=== PATIENT | male | born 1965 | race American Indian/Alaskan Native ===

== ENCOUNTER 2017-11-14 09:27 | Inpatient (IN) | payer OTHER ==
[2017-11-14] MEDS ORDERED: ASPIRIN PO ONE (09:30)
[2017-11-14 09:38] LABS: Basophils # (Auto) 0.1 K/mm3 (0.0-0.1); Basophils % (Auto) 0.5 % (0.0-1.8); Eosinophils % (Auto) 0.4 % (0.0-4.3); Hematocrit 37.7 % (35.5-45.6); Hemoglobin 12.7 gm/dl (11.8-15.2); Lymphocytes # (Auto) 1.2 K/mm3 (1.2-5.4); Lymphocytes % (Auto) 10.7 % (13.4-35.0); Mean Corpuscular HGB Conc 34 % (32-34); Mean Corpuscular Hemoglobin 32 pg (28-32); Mean Corpuscular Volume 95 fl (84-94); Monocytes # (Auto) 0.7 K/mm3 (0.0-0.8); Monocytes % (Auto) 6.7 % (0.0-7.3); Platelet Count 322 K/mm3 (140-440); Red Blood Count 3.99 M/mm3 (3.65-5.03); Red Cell Distribution Width 15.3 % (13.2-15.2)
[2017-11-14] MEDS ORDERED: NACL 0.9% 250ML 250 ML ONE (09:45)
[2017-11-14 09:50] LABS: INR 1.11 (0.87-1.13)
[2017-11-14 09:51] LABS: BUN/Creatinine Ratio 23; Blood Urea Nitrogen 25 mg/dL (9-20); Calcium 9.3 mg/dL (8.4-10.2); Hemolysis Index 2
[2017-11-14] MEDS ORDERED: NACL 0.9% 250ML 250 ML IV ONE (09:52)
[2017-11-14] MEDS ORDERED: K-DUR PO ONE (10:00)
--- NOTE | 2017-11-14 10:05 | XRay Report ---
AP CHEST: HISTORY: chest pain AP view of the chest demonstrates a normal mediastinal and cardiac contour with clear lungs and normal bony and soft tissue structures. IMPRESSION: Unremarkable AP chest.
[2017-11-14 10:07] LABS: Chol/HDL Ratio 2.14 %; HDL Cholesterol 48 mg/dL (40-59); LDL Cholesterol,Direct 49 mg/dL (50-130)
[2017-11-14 10:19] LABS: Alanine Aminotransferase 19 units/L (7-56); Albumin 3.9 g/dL (3.9-5)
[2017-11-14 10:20] LABS: Bilirubin,Direct < 0.2 mg/dL (0-0.2)
[2017-11-14 10:40] LABS: Partial Thromboplastin Time > 240.0 Sec. (24.2-36.6)
[2017-11-14] MEDS ORDERED: HEPARIN/ 0.45% NACL-25,000 UNIT/500 ML 25,000 UNIT/500 ML BAG IV SCH (11:30)
[2017-11-14] MEDS ORDERED: SODIUM CHLORIDE FLUSH SYRINGE 10 ML IV PRN (12:20)
[2017-11-14] MEDS ORDERED: BABY ASPIRIN PO STA (12:20)
[2017-11-14] MEDS ORDERED: ALUM-MAG HYDROX-SIMETH 200-200-20MG/5ML PO PRN (12:20)
[2017-11-14] MEDS ORDERED: NITROSTAT SL PRN (12:20)
[2017-11-14] MEDS ORDERED: DULCOLAX PR PRN (12:20)
[2017-11-14] MEDS ORDERED: MILK OF MAGNESIA PO PRN (12:20)
--- NOTE | 2017-11-14 12:43 | Emergency Department Report ---
ED Chest Pain HPI - General Chief Complaint: Chest Pain Stated Complaint: STEMI Time Seen by Provider: 11/14/17 09:35 Source: patient Mode of arrival: Stretcher Limitations: No Limitations - History of Present Illness Initial Comments: Patient states that he had the onset of substernal nonradiating chest tightness at about 9:00 last night. He states that he went to the [facility] facility but the wait was too long and he did not stay for evaluation. He went to his [facility] today for evaluation of chest pain. They kept him for a workup. They tell me that at 8:00 a troponin was obtained. This was later reported to me to be 7.5. The patient had been prior transported to this facility via EMS for admission for cardiology care. I did later speak to the patient's emergency physician at [place]. Upon the patient's arrival he did not complain of any substantial pain. He did not complain of any nausea or breathing difficulty. He stated previously he did have some dyspnea with the pain. He had intermittent pain all night. He states the pain was reasonably similar to the pain he had before his cardiac catheterization 3 years ago. The patient had his EKG transmitted to us via EMS telemetry. I was concerned that this patient had an evolving myocardial infarction. His previous EKG did not show the significant repolarization abnormalities that are present in his anterior leads. He has slight J-point elevation in his high lateral leads. 3 EKGs have been transmitted to our conservation worker on-call Dr. Martínez. He states that these are not consistent with STEMI. He did agree that the patient may have suffered an ischemic event. The conservation worker determined that the patient would not be sent directly to the wharf labou[facility]. Complaint: chest pain -: Gradual, days(s) Onset: during rest Pain Location: substernal Pain Radiation: none Severity: mild Quality: tightness Consistency: intermittent Improves With: nothing Treatments Prior to Arrival: other (now minimal heparin at the [facility]) - Related Data Home Medications Medication Instructions Recorded Confirmed Last Taken Atorvastatin Calcium [Lipitor] 20 mg PO QDAY 11/14/17 11/14/17 Unknown Carvedilol [Coreg] 25 mg PO BIDWM 11/14/17 11/14/17 Unknown Chlorthalidone [Thalitone] 25 mg PO QDAY 11/14/17 11/14/17 Unknown Clopidogrel Bisulfate [Plavix] 75 mg PO QDAY 11/14/17 11/14/17 Unknown ISOSORBIDE MONOnitrate [Imdur ER] 60 mg PO QDAY 11/14/17 11/14/17 Unknown Losartan/Hydrochlorothiazide 1 each PO QDAY 11/14/17 11/14/17 Unknown [Losartan-Hctz 100-25 mg Tab] OLANzapine [ZyPREXA] 2.5 mg PO QPM 11/14/17 11/14/17 Unknown Verapamil ER [Calan Sr] 240 mg PO QDAY 11/14/17 11/14/17 Unknown hydrALAZINE [Apresoline TAB] 100 mg PO TID 11/14/17 11/14/17 Unknown Allergies Allergy/AdvReac Type Severity Reaction Status Date / Time No Known Allergies Allergy Verified 11/14/17 09:29 Heart Score - HEART Score History: Highly suspicious EKG: Significant ST-depression Age: 45-65 Risk factors: > 3 risk factors or hx of atherosclerotic disease Troponin: 1-3x normal limit HEART Score: 8 ED Review of Systems ROS: Stated complaint: STEMI Other details as noted in HPI Constitutional: denies: chills, fever Eyes: denies: eye pain, eye discharge, vision change ENT: denies: ear pain, throat pain Respiratory: shortness of breath. denies: cough, wheezing Cardiovascular: chest pain. denies: palpitations Endocrine: no symptoms reported Gastrointestinal: denies: abdominal pain, nausea, diarrhea Genitourinary: denies: urgency, dysuria Musculoskeletal: denies: back pain, joint swelling, arthralgia Skin: denies: rash, lesions Neurological: denies: headache, weakness, paresthesias Psychiatric: denies: anxiety, depression Hematological/Lymphatic: denies: easy bleeding, easy bruising ED Past Medical Hx - Past Medical History Previous Medical History?: Yes Hx Hypertension: Yes Additional medical history: high cholesterol - Surgical History Past Surgical History?: Yes Hx Coronary Stent: Yes Hx Appendectomy: Yes - Social History Smoking Status: Never Smoker Substance Use Type: None - Medications Home Medications: Home Medications Medication Instructions Recorded Confirmed Last Taken Type Atorvastatin Calcium [Lipitor] 20 mg PO QDAY 11/14/17 11/14/17 Unknown History Carvedilol [Coreg] 25 mg PO BIDWM 11/14/17 11/14/17 Unknown History Chlorthalidone [Thalitone] 25 mg PO QDAY 11/14/17 11/14/17 Unknown History Clopidogrel Bisulfate [Plavix] 75 mg PO QDAY 11/14/17 11/14/17 Unknown History ISOSORBIDE MONOnitrate [Imdur ER] 60 mg PO QDAY 11/14/17 11/14/17 Unknown History Losartan/Hydrochlorothiazide 1 each PO QDAY 11/14/17 11/14/17 Unknown History [Losartan-Hctz 100-25 mg Tab] OLANzapine [ZyPREXA] 2.5 mg PO QPM 11/14/17 11/14/17 Unknown History Verapamil ER [Calan Sr] 240 mg PO QDAY 11/14/17 11/14/17 Unknown History hydrALAZINE [Apresoline TAB] 100 mg PO TID 11/14/17 11/14/17 Unknown History ED Physical Exam - General Limitations: No Limitations General appearance: alert, in no apparent distress - Head Head exam: Present: atraumatic, normocephalic - Eye Eye exam: Present: normal appearance, PERRL, EOMI. Absent: scleral icterus - ENT ENT exam: Present: mucous membranes moist - Neck Neck exam: Present: normal inspection - Respiratory Respiratory exam: Present: normal lung sounds bilaterally. Absent: respiratory distress - Cardiovascular Cardiovascular Exam: Present: regular rate, normal rhythm. Absent: systolic murmur, diastolic murmur, rubs, gallop - GI/Abdominal GI/Abdominal exam: Present: soft, normal bowel sounds. Absent: distended, tenderness, guarding, rebound - Rectal Rectal exam: Present: deferred - Extremities Exam Extremities exam: Present: normal inspection - Back Exam Back exam: Present: normal inspection - Neurological Exam Neurological exam: Present: alert, oriented X3, CN II-XII intact. Absent: motor sensory deficit - Psychiatric Psychiatric exam: Present: normal affect, normal mood - Skin Skin exam: Present: warm, dry, intact, normal color. Absent: rash ED Course Vital Signs 11/14/17 11/14/17 11/14/17 09:29 09:38 09:41 Temperature 97.7 F Pulse Rate 56 L 52 L Respiratory 17 10 L 17 Rate Blood Pressure 101/63 O2 Sat by Pulse 98 98 98 Oximetry 11/14/17 11/14/17 11/14/17 09:45 10:00 10:15 Temperature Pulse Rate 54 L 50 L 53 L Respiratory 13 10 L 17 Rate Blood Pressure 98/65 102/62 104/66 O2 Sat by Pulse 98 95 97 Oximetry 11/14/17 11/14/17 11/14/17 10:30 10:45 11:00 Temperature Pulse Rate 52 L 54 L 54 L Respiratory 12 12 12 Rate Blood Pressure 101/61 103/59 99/66 O2 Sat by Pulse 96 96 95 Oximetry 11/14/17 11/14/17 11/14/17 11:15 11:30 11:31 Temperature Pulse Rate 54 L 53 L 53 L Respiratory 13 12 Rate Blood Pressure 108/70 106/64 O2 Sat by Pulse 97 93 Oximetry 11/14/17 11/14/17 11:45 12:00 Temperature Pulse Rate 53 L 52 L Respiratory 15 10 L Rate Blood Pressure 107/68 107/68 O2 Sat by Pulse 96 97 Oximetry - Reevaluation(s) Reevaluation #1: Patient's initial blood pressure was 95 systolic. He was given a bolus of 250 mL of normal saline. Cardiology consultation was requested. The patient was ultimately admitted by the hospitalist Dr. Cain to the intensive care unit. 11/14/17 12:44 EULA score - Eula Score Age > 65: (0) No Aspirin use within the Past 7 Days: (1) Yes 3 or more CAD Risk Factors: (1) Yes 2 or more Angina events in past 24 hrs: (1) Yes Known CAD with more than 50% Stenosis: (1) Yes Elevated Cardiac Markers: (1) Yes ST Deviation Greater than 0.5mm: (1) Yes EULA Score: 6 ED Medical Decision Making - Lab Data Result diagrams: 11/14/17 09:24 11/14/17 09:24 Laboratory Results - last 24 hr 11/14/17 11/14/17 11/14/17 09:24 09:24 09:24 WBC 10.8 RBC 3.99 Hgb 12.7 Hct 37.7 MCV 95 H MCH 32 MCHC 34 RDW 15.3 H Plt Count 322 Lymph % (Auto) 10.7 L [place] % (Auto) 6.7 Eos % (Auto) 0.4 Baso % (Auto) 0.5 Lymph # 1.2 [place] # 0.7 Eos # 0.0 Baso # 0.1 Seg Neutrophils % 81.7 H Seg Neutrophils # 8.8 H PT 14.9 INR 1.11 APTT > 240.0 H* Sodium 131 L Potassium 3.2 L Chloride 90.9 L Carbon Dioxide 27 Anion Gap 16 BUN 25 H Creatinine 1.1 Estimated GFR > 60 BUN/Creatinine Ratio 23 Glucose 135 H Calcium 9.3 Total Bilirubin Direct Bilirubin Indirect Bilirubin AST ALT Alkaline Phosphatase Troponin T 0.675 H* NT-Pro-B Natriuret Pep Total Protein Albumin Albumin/Globulin Ratio Triglycerides 30 Cholesterol 103 LDL Cholesterol Direct 49 L HDL Cholesterol 48 Cholesterol/HDL Ratio 2.14 Blood Type Antibody Screen 11/14/17 11/14/17 09:24 09:24 WBC RBC Hgb Hct MCV MCH MCHC RDW Plt Count Lymph % (Auto) [place] % (Auto) Eos % (Auto) Baso % (Auto) Lymph # [place] # Eos # Baso # Seg Neutrophils % Seg Neutrophils # PT INR APTT Sodium Potassium Chloride Carbon Dioxide Anion Gap BUN Creatinine Estimated GFR BUN/Creatinine Ratio Glucose Calcium Total Bilirubin 0.30 Direct Bilirubin < 0.2 Indirect Bilirubin 0.1 AST 52 H ALT 19 Alkaline Phosphatase 40 Troponin T NT-Pro-B Natriuret Pep 159.7 Total Protein 6.6 Albumin 3.9 Albumin/Globulin Ratio 1.4 Triglycerides Cholesterol LDL Cholesterol Direct HDL Cholesterol Cholesterol/HDL Ratio Blood Type O POSITIVE Antibody Screen Negative - EKG Data -: EKG Interpreted by Me EKG shows normal: sinus rhythm - EKG Data When compared to previous EKG there are: changes noted Interpretation: other (repolarization abnormalities consistent with ischemia/ evolving anterior myocardial infarction) - Radiology Data interpreted by me: Chest x-ray no acute process Critical care attestation.: If time is entered above; I have spent that time in minutes in the direct care of this critically ill patient, excluding procedure time. ED Disposition Clinical Impression: Acute myocardial infarction Qualifiers: Myocardial infarction ST status: non-ST elevation myocardial infarction Qualified Code(s): I21.4 - Non-ST elevation (NSTEMI) myocardial infarction Disposition: OP ADMIT IP TO THIS HOSP Is pt being admited?: Yes Does the pt Need Aspirin: Yes Condition: Stable Time of Disposition: 12:49
--- NOTE | 2017-11-14 13:40 | Consultation ---
History of Present Illness Consult date: 11/14/17 Consult reason: chest pain History of present illness: Patient is a 52-year-old man who presented to the hospital from the [place] outpatient clinic with chest pain. He has a history of coronary artery disease and coronary stenting done 3 years ago in [facility]. Although he now lives in [place], he has maintained intermittent follow-up with his biotechnician in [place], and saw him last 6 months ago. He is still treated with dual oral antiplatelet therapy with aspirin and Plavix. The current chest pain has been somewhat intermittent, but not exertional. He visited the emergency room at [facility], [place] last night, complaining of chest pain, states that ECG was done and he was sent back to the [facility]. He apparently became impatient and went back home. This morning, he went to the [place] facility still complaining of chest pain. The chest pain is left-sided and radiates to his back, no associated shortness of breath, no exertional component. ECG was sinus rhythm with anterior T-wave inversions, questionable anterior ischemia. There is no ST elevation myocardial infarction on his ECG. Initial troponin levels are mildly elevated. Cardiology consultation was requested. Past History Past Medical History: CAD, hypertension Medications and Allergies Allergies Allergy/AdvReac Type Severity Reaction Status Date / Time No Known Allergies Allergy Verified 11/14/17 09:29 Home Medications Medication Instructions Recorded Confirmed Last Taken Type Atorvastatin Calcium [Lipitor] 20 mg PO QDAY 11/14/17 11/14/17 Unknown History Carvedilol [Coreg] 25 mg PO BIDWM 11/14/17 11/14/17 Unknown History Chlorthalidone [Thalitone] 25 mg PO QDAY 11/14/17 11/14/17 Unknown History Clopidogrel Bisulfate [Plavix] 75 mg PO QDAY 11/14/17 11/14/17 Unknown History ISOSORBIDE MONOnitrate [Imdur ER] 60 mg PO QDAY 11/14/17 11/14/17 Unknown History Losartan/Hydrochlorothiazide 1 each PO QDAY 11/14/17 11/14/17 Unknown History [Losartan-Hctz 100-25 mg Tab] OLANzapine [ZyPREXA] 2.5 mg PO QPM 11/14/17 11/14/17 Unknown History Verapamil ER [Calan Sr] 240 mg PO QDAY 11/14/17 11/14/17 Unknown History hydrALAZINE [Apresoline TAB] 100 mg PO TID 11/14/17 11/14/17 Unknown History Active Meds: Active Medications Al Hydrox/Mg Hydrox/Simethicone (Alum-Mag Hydrox-Simeth [id number]/5ml) 30 ml PO Q4H PRN PRN Reason: Indigestion Atorvastatin Calcium (Lipitor) 10 mg PO QHS HOLLY Bisacodyl (Dulcolax) 10 mg WI QDAY PRN PRN Reason: constipation unrelieved by MOM Carvedilol (Coreg) 25 mg PO BIDWM [facility] Chlorthalidone (Thalitone) 25 mg PO QDAY [place] Clopidogrel Bisulfate (Plavix) 75 mg PO QDAY HO[place] Hydralazine HCl (Apresoline) 100 mg PO TID [facility] Heparin Sodium/Sodium Chloride (Heparin/ 0.45% Nacl-25,000 Unit/500 Ml) 25,000 unit in 500 mls @ 20 mls/hr IV TITRATE HOLLY; 1,000 UNITS/HR PRN Reason: Protocol Sodium Chloride (Nacl 0.9% 500 Ml) 500 mls @ 50 mls/hr IV DIRECT HOLLY Stop: 11/14/17 23:59 Isosorbide Mononitrate (Imdur) 60 mg PO QDAY [place] Magnesium Hydroxide (Milk Of Magnesia) 30 ml PO Q4H PRN PRN Reason: Constipation Miscellaneous Medication (Losartan/Hydrochlorothiazide [Losartan-Hctz 100-25 Mg Tab]) 1 each PO QDAY [facility] Nitroglycerin (Nitrostat) 0.4 mg SL Q5M PRN PRN Reason: Chest Pain Olanzapine (Zyprexa) 2.5 mg PO QPM [facility] Sodium Chloride (Sodium Chloride Flush Syringe 10 Ml) 10 ml IV PRN PRN PRN Reason: LINE FLUSH Verapamil HCl (Calan Sr) 240 mg PO QDAY [facility] Review of Systems Cardiovascular: chest pain, no orthopnea, no palpitations, no rapid/irregular heart beat, no edema, no syncope, no lightheadedness, no shortness of breath Physical Examination Vital Signs Temp Pulse Resp BP Pulse Ox 97.7 F 56 L 17 101/63 98 11/14/17 09:29 11/14/17 09:29 11/14/17 09:29 11/14/17 09:29 11/14/17 09:29 General appearance: no acute distress HEENT: Positive: PERRL Neck: Positive: neck supple Cardiac: Positive: Reg Rate and Rhythm Lungs: Positive: Decreased Breath Sounds Neuro: Positive: Grossly Intact Abdomen: Positive: Soft Male genitourinary: Positive: deferred Skin: Positive: Clear Extremities: Absent: edema Results 11/14/17 09:24 11/14/17 09:24 Cardiac Enzymes 11/14/17 Range/Units 09:24 AST 52 H (5-40) units/L Coagulation 11/14/17 Range/Units 09:24 PT 14.9 (12.2-14.9) Sec. INR 1.11 (0.87-1.13) APTT > 240.0 H* (24.2-36.6) Sec. Lipids 11/14/17 Range/Units 09:24 Triglycerides 30 (2-149) mg/dL Cholesterol 103 (50-199) mg/dL HDL Cholesterol 48 (40-59) mg/dL Cholesterol/HDL Ratio 2.14 % CBC 11/14/17 Range/Units 09:24 WBC 10.8 (4.5-11.0) K/mm3 RBC 3.99 (3.65-5.03) M/mm3 Hgb 12.7 (11.8-15.2) gm/dl Hct 37.7 (35.5-45.6) % Plt Count 322 (140-440) K/mm3 Lymph # 1.2 (1.2-5.4) K/mm3 [place] # 0.7 (0.0-0.8) K/mm3 Eos # 0.0 (0.0-0.4) K/mm3 Baso # 0.1 (0.0-0.1) K/mm3 Comprehensive Metabolic Panel 11/14/17 11/14/17 Range/Units 09:24 09:24 Sodium 131 L (137-145) mmol/L Potassium 3.2 L (3.6-5.0) mmol/L Chloride 90.9 L (98-107) mmol/L Carbon Dioxide 27 (22-30) mmol/L BUN 25 H (9-20) mg/dL Creatinine 1.1 (0.8-1.5) mg/dL Glucose 135 H (75-100) mg/dL Calcium 9.3 (8.4-10.2) mg/dL Direct Bilirubin < 0.2 (0-0.2) mg/dL Indirect Bilirubin 0.1 mg/dL AST 52 H (5-40) units/L ALT 19 (7-56) units/L Alkaline Phosphatase 40 (35-129) units/L Total Protein 6.6 (6.3-8.2) g/dL Albumin 3.9 (3.9-5) g/dL EKG interpretations - Telemetry EKG Rhythm: Sinus Rhythm Assessment and Plan - Patient Problems (1) Chest pain not due to acute coronary syndrome Current Visit: Yes Status: Acute Plan to address problem: Patient presents with chest pain, suspicious for unstable angina pectoris. We will admit to telemetry, serial cardiac enzymes, anti-ischemic therapy with oral antiplatelets, beta blockers, nitrates and intravenous heparin. Early invasive therapy with cardiac catheterization scheduled for tomorrow morning.
[2017-11-14] MEDS: COREG PO SCH ×2 (13:47→22:31)
--- NOTE | 2017-11-14 13:50 | History and Physical Report ---
History of Present Illness Date of admission: 11/14/17 12:20 Chief complaint: My chest hurts History of present illness: 52 YO Male with HTN, CAD S/P Stent Placement on DAPT, HLD presents to ED for evaluation. Pt states that he has experienced pain in his chest for the past 1 day with worsening symptoms over the past 6 hours. Pt states that his pain in 6- 810, localized to the left chest, radiates to his back, persistent, crushing in nature, not associated with shortness of breath, not worsened with exertion or relieved with rest. No reports of fever, chills, palpitations, leg swelling, calf pain, syncope, prolonged travel/immobility, individual/family history of DVT/PE, no medication noncompliance. per , the patient was fount to have elevated blood pressure at home with systolic BP in the 190's. Pt seen and evaluated in ED and found to have evidence of NSTEMI as well as stable angina. Pt at bedside. Past History Past Medical History: CAD, hypertension Past Surgical History: appendectomy, hernia repair, Other (Stent placement) Social history: , lives with family. denies: smoking, alcohol abuse, prescription drug abuse, IV drug use Family history: CAD, hypertension Medications and Allergies Allergies Allergy/AdvReac Type Severity Reaction Status Date / Time No Known Allergies Allergy Verified 11/14/17 09:29 Home Medications Medication Instructions Recorded Confirmed Last Taken Type Atorvastatin Calcium [Lipitor] 20 mg PO QDAY 11/14/17 11/14/17 Unknown History Carvedilol [Coreg] 25 mg PO BIDWM 11/14/17 11/14/17 Unknown History Chlorthalidone [Thalitone] 25 mg PO QDAY 11/14/17 11/14/17 Unknown History Clopidogrel Bisulfate [Plavix] 75 mg PO QDAY 11/14/17 11/14/17 Unknown History ISOSORBIDE MONOnitrate [Imdur ER] 60 mg PO QDAY 11/14/17 11/14/17 Unknown History Losartan/Hydrochlorothiazide 1 each PO QDAY 11/14/17 11/14/17 Unknown History [Losartan-Hctz 100-25 mg Tab] OLANzapine [ZyPREXA] 2.5 mg PO QPM 11/14/17 11/14/17 Unknown History Verapamil ER [Calan Sr] 240 mg PO QDAY 11/14/17 11/14/17 Unknown History hydrALAZINE [Apresoline TAB] 100 mg PO TID 11/14/17 11/14/17 Unknown History Active Meds: Active Medications Al Hydrox/Mg Hydrox/Simethicone (Alum-Mag Hydrox-Simeth 076-213-35if/5ml) 30 ml PO Q4H PRN PRN Reason: Indigestion Atorvastatin Calcium (Lipitor) 10 mg PO QHS [facility] Bisacodyl (Dulcolax) 10 mg OR QDAY PRN PRN Reason: constipation unrelieved by MOM Carvedilol (Coreg) 25 mg PO BID [facility] Last Admin: 11/14/17 13:47 Dose: Not Given Chlorthalidone (Thalitone) 25 mg PO QDAY [facility] Clopidogrel Bisulfate (Plavix) 75 mg PO QDAY [facility] Hydralazine HCl (Apresoline) 100 mg PO TID [facility] Heparin Sodium/Sodium Chloride (Heparin/ 0.45% Nacl-25,000 Unit/500 Ml) 25,000 unit in 500 mls @ 20 mls/hr IV TITRATE HOLLY; 1,000 UNITS/HR PRN Reason: Protocol Sodium Chloride (Nacl 0.9% 500 Ml) 500 mls @ 50 mls/hr IV DIRECT [facility] Stop: 11/14/17 23:59 Isosorbide Mononitrate (Imdur) 60 mg PO QDAY [facility] Magnesium Hydroxide (Milk Of Magnesia) 30 ml PO Q4H PRN PRN Reason: Constipation Miscellaneous Medication (Losartan/Hydrochlorothiazide [Losartan-Hctz 100-25 Mg Tab]) 1 each PO QDAY [facility] Nitroglycerin (Nitrostat) 0.4 mg SL Q5M PRN PRN Reason: Chest Pain Olanzapine (Zyprexa) 2.5 mg PO QPM [facility] Sodium Chloride (Sodium Chloride Flush Syringe 10 Ml) 10 ml IV PRN PRN PRN Reason: LINE FLUSH Verapamil HCl (Calan Sr) 240 mg PO QDAY [facility] Review of Systems Constitutional: no weight loss, no weight gain, no fever, no chills Ears, nose, mouth and throat: no ear pain, no ear discharge, no tinnitis Cardiovascular: chest pain, no orthopnea, no palpitations, no lightheadedness, no shortness of breath, no dyspnea on exertion, no paroxysmal nocturnal dyspnea Respiratory: no cough, no cough with sputum, no excessive sputum, no hemoptysis Gastrointestinal: no nausea, no vomiting, no diarrhea, no constipation Genitourinary Male: no hematuria, no flank pain, no discharge, no urinary frequency, no urinary hesitancy Rectal: no pain, no incontinence, no bleeding Musculoskeletal: no neck stiffness, no neck pain, no shooting arm pain, no arm numbness/tingling, no low back pain, no shooting leg pain Integumentary: no rash, no pruritis, no redness, no sores, no wounds, no jaundice Neurological: no paralysis, no weakness, no parathesias, no numbness, no tingling, no seizures, no syncope Psychiatric: no memory loss, no change in sleep habits, no sleep disturbances, no insomnia, no hypersomnia, no change in appetite, no change in libido Endocrine: no cold intolerance, no heat intolerance, no polyphagia, no excessive thirst, no polydipsia, no polyuria, no nocturia Hematologic/Lymphatic: no easy bruising, no easy bleeding, no lymphadenopathy, no lymphedema Allergic/Immunologic: no urticaria, no allergic rhinitis, no wheezing Exam - Constitutional Vitals: Temp Pulse Resp BP Pulse Ox 97.7 F 51 L 11 L 109/59 94 11/14/17 09:29 11/14/17 13:47 11/14/17 13:30 11/14/17 13:47 11/14/17 13:30 General appearance: Present: mild distress - EENT Eyes: Present: PERRL ENT: hearing intact, clear oral mucosa - Neck Neck: Present: supple, normal ROM - Respiratory Respiratory effort: normal Respiratory: bilateral: CTA - Cardiovascular Heart Sounds: Present: S1 & S2. Absent: rub, click - Extremities Extremities: pulses symmetrical, No edema Peripheral Pulses: within normal limits - Abdominal General gastrointestinal: Present: soft, non-tender, non-distended, normal bowel sounds Male genitourinary: Present: normal - Integumentary Integumentary: Present: clear, warm, dry - Musculoskeletal Musculoskeletal: gait normal, strength equal bilaterally - Psychiatric Psychiatric: appropriate mood/affect, intact judgment & insight - Neurologic Neurologic: CNII-XII intact, moves all extremities Results - Labs CBC & Chem 7: 11/14/17 09:24 11/14/17 09:24 Labs: Abnormal lab results 11/14/17 11/14/17 11/14/17 Range/Units 09:24 09:24 09:24 MCV 95 H (84-94) fl RDW 15.3 H (13.2-15.2) % Lymph % (Auto) 10.7 L (13.4-35.0) % Seg Neutrophils % 81.7 H (40.0-70.0) % Seg Neutrophils # 8.8 H (1.8-7.7) K/mm3 APTT > 240.0 H* (24.2-36.6) Sec. Sodium 131 L (137-145) mmol/L Potassium 3.2 L (3.6-5.0) mmol/L Chloride 90.9 L (98-107) mmol/L BUN 25 H (9-20) mg/dL Glucose 135 H (75-100) mg/dL AST (5-40) units/L Troponin T 0.675 H* (0.00-0.029) ng/mL LDL Cholesterol Direct 49 L (50-130) mg/dL 11/14/17 11/14/17 Range/Units 09:24 12:20 MCV (84-94) fl RDW (13.2-15.2) % Lymph % (Auto) (13.4-35.0) % Seg Neutrophils % (40.0-70.0) % Seg Neutrophils # (1.8-7.7) K/mm3 APTT (24.2-36.6) Sec. Sodium (137-145) mmol/L Potassium (3.6-5.0) mmol/L Chloride (98-107) mmol/L BUN (9-20) mg/dL Glucose (75-100) mg/dL AST 52 H (5-40) units/L Troponin T 1.690 H* D (0.00-0.029) ng/mL LDL Cholesterol Direct (50-130) mg/dL Assessment and Plan - Patient Problems (1) NSTEMI (non-ST elevated myocardial infarction) Current Visit: Yes Status: Acute Plan to address problem: Serial cardiac enzymes, ekg, telemetry, cardiology consulted in ED, Heparin drip The high probability of a clinically significant, sudden or life threatening deterioration of the [cardiac, pulmonary, renal] system(s) required my full and direct attention, intervention and personal management. The aggregate critical care time was [65] minutes. This time is in addition to time spent performing reported procedures but includes the following: [x] Data Review and interpretation [x] Patient assessment and monitoring of vital signs [x] Documentation [x] Medication orders and management (2) Angina at rest Current Visit: Yes Status: Acute (3) Accelerated hypertension Current Visit: Yes Status: Acute Plan to address problem: Monitor bp q shift, IV hydralazine prn, continue medical management. (4) HLD (hyperlipidemia) Current Visit: Yes Status: Acute Qualifiers: Hyperlipidemia type: mixed hyperlipidemia Qualified Code(s): E78.2 - Mixed hyperlipidemia Plan to address problem: lipid panel, statin therapy (5) CAD (coronary artery disease) Current Visit: Yes Status: Acute Qualifiers: Coronary Disease-Associated Artery/Lesion type: [place] artery Associated angina: with stable angina Plan to address problem: DAPT, heprain drip, statin therapy, (6) DVT prophylaxis Current Visit: Yes Status: Acute
[2017-11-14] MEDS ORDERED: NACL 0.9% 500 ML 500 ML IV SCH (14:00)
[2017-11-14] MEDS: APRESOLINE PO SCH ×2 (14:02→22:31)
[2017-11-15 07:56] LABS: BUN/Creatinine Ratio 22; Blood Urea Nitrogen 24 mg/dL (9-20); Calcium 9.1 mg/dL (8.4-10.2); Hemolysis Index 3
[2017-11-15] MEDS ORDERED: K-DUR PO NR (09:00)
[2017-11-15] MEDS ORDERED: ASPIRIN ONE (09:53)
[2017-11-15] MEDS ORDERED: ASPIRIN PO ONE (09:59)
[2017-11-15] MEDS ORDERED: NON-FORMULARY (Losartan/Hydrochlorothiazide [Losartan-Hctz 100-25 Mg Tab] 1 EACH) PO SCH (10:00)
[2017-11-15] MEDS ORDERED: IMDUR PO SCH (10:00)
[2017-11-15] MEDS ORDERED: THALITONE PO SCH (10:00)
[2017-11-15] MEDS ORDERED: PLAVIX PO SCH (10:00)
[2017-11-15] MEDS ORDERED: CALAN SR PO SCH (10:00)
[2017-11-15] MEDS ORDERED: HEPARIN/NS 5000 UNIT/500ML(CATH LAB) 1,000 ML IR ONE (15:20)
[2017-11-15] MEDS ORDERED: HEPARIN 10,000 UNITS/10 ML ONE (15:21)
[2017-11-15] MEDS ORDERED: NITROGLYCERIN SYRINGE 0 ML ONE (15:21)
[2017-11-15] MEDS ORDERED: CALAN ONE (15:21)
[2017-11-15] MEDS ORDERED: XYLOCAINE 2% INFILTRATI ONE (15:21)
[2017-11-15] MEDS ORDERED: NACL 0.9% 500 ML 500 ML ONE (15:22)
[2017-11-15] MEDS ORDERED: VERSED ONE (15:22)
[2017-11-15] MEDS ORDERED: SUBLIMAZE ONE (15:23)
[2017-11-15] MEDS ORDERED: NACL 0.9% 1000 ML 1,000 ML IV SCH (16:00)
--- NOTE | 2017-11-15 16:05 | Event Note ---
Date: 11/15/17 Cardiac cath completed, no complications. Findings: 1. Patent RCA stent. 2. Otherwise no significant residual coronary obstructions. 3. LVEF 40-45%. OK for cardiac discharge on medications.
[2017-11-15] MEDS ORDERED: KCL 10MEQ/100ML 10 MEQ/100 ML BAG IV ONE (16:08)
--- NOTE | 2017-11-15 16:12 | Discharge Summary ---
Providers - Providers Date of Admission: 11/14/17 12:20 Attending physician: MIS CURRIE MD 11/14/17 Consult to Cardiac Rehabilitation [CONS] Routine Reason For Exam: Phase I 11/14/17 09:35 Consult to Cardiology [CONS] Stat Consulting Provider: GRIS MCNAIR Reason For Exam: ACS 11/15/17 Consult to Cardiac Rehabilitation [CONS] Routine Reason For Exam: post pci Primary care physician: [employer] Hospitalization Reason for admission: CHEST PAIN Condition: Stable Hospital course: 52 YO Male with HTN, CAD S/P Stent Placement on DAPT, HLD presents to ED for evaluation. Pt states that he has experienced pain in his chest for the past 1 day with worsening symptoms over the past 6 hours. Pt states that his pain in - 05/11, localized to the left chest, radiates to his back, persistent, crushing in nature, not associated with shortness of breath, not worsened with exertion or relieved with rest. No reports of fever, chills, palpitations, leg swelling, calf pain, syncope, prolonged travel/immobility, individual/family history of DVT/PE, no medication noncompliance. per , the patient was fount to have elevated blood pressure at home with systolic BP in the 190's. Pt seen and evaluated in ED and found to have evidence of NSTEMI as well as stable angina. Pt at bedside. 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 O Disposition: DC-01 TO HOME OR SELFCARE Time spent for discharge: 35 mins Core Measure Documentation - Palliative Care Palliative Care/ Comfort Measures: Not Applicable - Core Measures Any of the following diagnoses?: none - VTE Discharge Requirements Deep Vein Thrombosis/Pulmonary Embolism Present on Admission: No Exam - Physical Exam Narrative exam: VITAL SIGNS: Reviewed. GENERAL: The patient appeared well nourished and normally developed. Vital signs as documented. HEAD: No signs of head trauma. EYES: Pupils are equal. Extraocular motions intact. EARS: Hearing grossly intact. MOUTH: Oropharynx is normal. NECK: No adenopathy, no JVD. CHEST: Chest with clear breath sounds bilaterally. No wheezes, rales, or rhonchi. CARDIAC: Regular rate and rhythm. S1 and S2, without murmurs, gallops, or rubs. VASCULAR: No Edema. Peripheral pulses normal and equal in all extremities. ABDOMEN: Soft, without detectable tenderness. No sign of distention. No rebound or guarding, and no masses palpated. Bowel Sounds normal. MUSCULOSKELETAL: Good range of motion of all major joints. Extremities without clubbing, cyanosis or edema. NEUROLOGIC EXAM: Alert and oriented x 3. No focal sensory or strength deficits. Speech normal. Follows commands. PSYCHIATRIC: Mood normal. SKIN: No rash or lesions. - Constitutional Vitals: Temp Pulse Resp BP Pulse Ox 98.1 F 70 15 148/98 98 11/14/17 17:46 11/15/17 08:46 11/15/17 08:46 11/15/17 08:46 11/15/17 08:00 Plan Activity: advance as tolerated, fall precautions Diet: low fat, low cholesterol Special Instructions: record daily BP diary, record blood sugar diary Follow up with: PRIMARY CAREMD [Primary Care Provider] - 3-5 Days GRIS MCNAIR MD [Staff Physician] - 7 Days Forms: [facility] PCI D/C Instructions Prescriptions: Atorvastatin Calcium [Lipitor] 20 mg PO QDAY #30 tablet Carvedilol [Coreg] 25 mg PO BIDWM #30 tablet Chlorthalidone [Thalitone] 25 mg PO QDAY #30 tablet Clopidogrel Bisulfate [Plavix] 75 mg PO QDAY #30 tablet hydrALAZINE [Apresoline TAB] 100 mg PO TID #90 tab ISOSORBIDE MONOnitrate [Imdur ER] 60 mg PO QDAY #30 tablet Losartan/Hydrochlorothiazide [Losartan-Hctz 100-25 mg Tab] 1 each PO QDAY #30 tablet OLANzapine [ZyPREXA] 2.5 mg PO QPM #30 tablet Verapamil ER [Calan SR] 240 mg PO QDAY #30 tablet
[2017-11-15] MEDS ORDERED: K-DUR PO ONE ×2 (16:31→17:00)
[2017-11-15] MEDS ORDERED: APRESOLINE ONE (16:32)
--- NOTE | 2017-11-15 17:57 | Cardiac Catherization Report ---
CARDIAC CATHETERIZATION REASON FOR PROCEDURE: Chest pain and unstable angina. DESCRIPTION OF PROCEDURE: The patient was prepped and draped in a sterile fashion after informed consent. Right femoral artery was entered using Seldinger technique followed by placement of a 6-[place] sheath. Selective left and right coronary angiography was performed using #4 left and right Riki catheters. The pigtail catheter was used for left ventricle angiography. The catheters were removed, sheath removed, and hemostasis achieved using an Angio-Seal device. The patient was returned to the postprocedure unit in stable condition. There were no complications. FINDINGS: HEMODYNAMICS: Left ventricular end diastolic pressure was 27, following coronary angiography. Ascending aortic pressure was 168/103. There was no significant pressure gradient on pullback across the aortic valve. CORONARY ANGIOGRAPHY: Left main coronary artery was free of significant disease. The left anterior descending artery contained diffuse moderate ectasia of its proximal and mid segments, associated with diffuse mild atherosclerosis. This was followed by diffuse mild atherosclerosis of the mid distal LAD. We found a 60-70% stenosis of the distal LAD in its apical segment. A large ramus intermedius artery contained diffuse mild atherosclerosis in its proximal, mid, and distal segments. The circumflex artery was a very small caliber arthritic system that contained diffuse mild atherosclerosis. The right coronary artery was dominant. This vessel contained luminal irregularities in its mid segment. A stent was visible in the distal AV groove right coronary, midway between the acute margin and the right posterior descending branch. The stented segment was widely patent, no significant restenosis seen. Otherwise, there was a 20% stenosis of the AV groove between the acute margin and the proximal border of the stented segment. We also noted diffuse mild atherosclerosis of the terminal branches of the right coronary system. The left ventricle is mildly dilated. There was mild left ventricular systolic dysfunction, ejection fraction 40-45%. CONCLUSION: 1. Widely patent distal right coronary artery stent. 2. Otherwise, diffuse mild nonobstructive residual disease. 3. A 60% stenosis of the apical segment of the LAD is recommended for medical therapy. 4. Mild left ventricular systolic dysfunction, ejection fraction 40-50%. RECOMMENDATION: Risk factor modification and medical therapy. [facility]# [id number] [place]/NTS
[2017-11-15] MEDS ORDERED: KCL 10 MEQ in NACL 0.9% 100 ML IV ONE (18:00)
[2017-11-15 19:25] VITALS: BP 142/84
== END 2017-11-15 19:37 | disposition home or self-care (01) | DRG 282 ==
LOC: ED 09:27 → CC1 12:20
PROVIDERS: ADMIT Internal Medicine; ATTEND Internal Medicine
PROC: 4A023N7 Measurement of Cardiac Sampling and Pressure, Left Heart, Percutaneous Approach (ICD-10-PCS; principal; 2017-11-15)
PROC: B2111ZZ Fluoroscopy of Multiple Coronary Arteries using Low Osmolar Contrast (ICD-10-PCS; 2017-11-15)
PROC: B2151ZZ Fluoroscopy of Left Heart using Low Osmolar Contrast (ICD-10-PCS; 2017-11-15)
DX: I25.118 Atherosclerotic heart disease of native coronary artery with other forms of angina pectoris (principal); I21.4 Non-ST elevation (NSTEMI) myocardial infarction; E78.00 Pure hypercholesterolemia, unspecified; I25.5 Ischemic cardiomyopathy; Z79.899 Other long term (current) drug therapy; Z90.49 Acquired absence of other specified parts of digestive tract; Z95.5 Presence of coronary angioplasty implant and graft; Z82.49 Family history of ischemic heart disease and other diseases of the circulatory system
CPT/HCPCS: 36415; 71045; 80048; 80061; 80074; 83880; 84484; 85025; 85347; 85520; 85610; 85730; 86850; 86900; 86901; 93005; 93010; 93458; 96365; A9270-GY; C1760; C1894; J1644; J2250; J3010; J3480; J7040; J7050; Q9967